=== PATIENT | male | born 1965 | race African-American/Black ===

== ENCOUNTER 2024-03-17 10:49 | Emergency (ER) | payer OTHER ==
[2024-03-17] MEDS ORDERED: HYDROcodone/Acetaminophen 5/325 mg Tablet ONE (12:41)
[2024-03-17] MEDS ORDERED: Methocarbamol 500 MG TAB PO SCH (13:00)
== END 2024-03-17 12:30 | disposition home or self-care (01) ==
LOC: CSHERS 10:49
DX: S16.1XXA Strain of muscle, fascia and tendon at neck level, initial encounter (principal); V89.2XXA Person injured in unspecified motor-vehicle accident, traffic, initial encounter
CPT/HCPCS: 99283